=== PATIENT | male | born 1950 | race Two or more races ===

== ENCOUNTER 2021-12-31 09:38 | Inpatient (IN) | payer SELFPAY ==
[~2021-12-31] VITALS: Ht 167.6 cm; Wt 57.6 kg
--- NOTE | 2021-12-31 09:52 | NUR ---
NELY C/O VOMITING & DIZZINESS SINCE MN AFTER EATING. -DIARRHEA. PT ALSO C/O LT LOWER ABD PAIN. PT AAOX4, VSS. RR EVEN & UNLABORED. DENIES CP, SOB AT THIS TIME. PLACED ON EDGE INKER, SR. WILL CONT TO MONITOR. FAMILY AT ASSISTING WITH TRANSLATION.
[2021-12-31] MEDS ORDERED: MULT-447 PO (09:53)
--- NOTE | 2021-12-31 10:00 | NUR ---
CALLED CODE STROKE
--- NOTE | 2021-12-31 10:01 | NUR ---
COVID SWAB DONE AND SENT TO LAB
--- NOTE | 2021-12-31 10:05 | NUR ---
TELE NEUROLOGIST IS DR. KYLE BENOIT
[2021-12-31 10:12] LABS: BASOPHILS % (AUTO) 0.5 % (0.0-2.0); EOSINOPHILS % (AUTO) 0.2 % (0.0-6.0); HEMATOCRIT 39 % (39-51); HEMOGLOBIN 13.5 g/dL (13.5-17.5); LYMPHOCYTES # (AUTO) 0.8 K/uL (0.8-4.8); LYMPHOCYTES % (AUTO) 10.2 % (20.0-44.0); MEAN CORPUSCULAR HGB CONC 35 g/dl (31.0-36.0); MEAN CORPUSCULAR VOLUME 92 fL (80-96); MONOCYTES # (AUTO) 0.4 K/uL (0.1-1.30); MONOCYTES % (AUTO) 5.4 % (2.0-12.0); NEUTROPHILS # (AUTO) 6.8 K/uL (1.8-8.9); NEUTROPHILS % (AUTO) 83.7 % (43.0-81.0); PLATELET COUNT (AUTO) 271 K/uL (150-450); RED BLOOD CELL COUNT(AUTO) 4.24 MIL/uL (4.5-6.0); WHITE BLOOD COUNT (AUTO) 8.1 K/uL (4.3-11.0)
[2021-12-31] MEDS ORDERED: ONDANSETRON HCL/PF 4 MG/2 ML VIAL ONE (10:24)
[2021-12-31] MEDS ORDERED: MECLIZINE HCL 25 MG TABLET ONE (10:24)
[2021-12-31 10:27] LABS: ALANINE AMINOTRANSFERASE 19 U/L (12-78); ALBUMIN 3.4 g/dL (3.4-5.0); ALKALINE PHOSPHATASE 66 U/L (46-116); ASPARTATE AMINOTRANSFERASE 18 U/L (15-37); BILIRUBIN,DIRECT 0.1 mg/dL (0.0-0.2); BILIRUBIN,TOTAL 0.5 mg/dL (0.2-1.0); CALCIUM, SERUM 8.6 mg/dL (8.5-10.1); CARBON DIOXIDE 24 mmol/L (21-32); CHLORIDE 105 mmol/L (98-107); CREATININE 1.4 mg/dL (0.6-1.3); GLUCOSE 167 mg/dL (74-106); POTASSIUM 3.7 mmol/L (3.5-5.1); SODIUM SERUM 140 mmol/L (136-145); TOTAL PROTEIN, SERUM 6.7 g/dL (6.4-8.2); UREA NITROGEN, BLOOD 15 mg/dL (7-18)
[2021-12-31] MEDS ORDERED: ONDANSETRON HCL/PF - ER 4 MG/2 ML VIAL IV ONE (10:30)
[2021-12-31] MEDS ORDERED: MECLIZINE HCL 12.5 MG TABLET PO ONE (10:30)
--- NOTE | 2021-12-31 10:40 | NUR ---
PT AAOX4, VSS. STILL C/O DIZZINESS. SPEAKING FLUENTLY, TONGUE MIDLINE, NO FACIAL DROOP, NO ARM/LEG DRIFTING. DENIES CP, SOB, N/V AT THIS TIME.
--- NOTE | 2021-12-31 10:54 | NUR ---
MOVE SHEET SUBMITTED.
[2021-12-31] MEDS ORDERED: IOHEXOL-350 100 ML VIAL IV ONE (10:57)
[2021-12-31] MEDS ORDERED: IV NS 0.9% 250 ML IV ONE (10:57)
--- NOTE | 2021-12-31 10:58 | NUR ---
TAKEN TO CT VIA ANDREW
--- NOTE | 2021-12-31 11:10 | NUR ---
BACK FROM CT
--- NOTE | 2021-12-31 12:02 | NUR ---
PT ASLEEP, EASILY AWAKEN BY VERBAL STIMULI. PT STS THAT HE FEELS BETTER. DENIES CP, SOB, N/V, ABD PAIN AT THIS TIME. WILL CONT TO MONITOR.
--- NOTE | 2021-12-31 12:10 | NUR ---
URINE COLLECTED AND SENT TO LAB
--- NOTE | 2021-12-31 12:16 | NUR ---
[facility] CALLED COMMERCIAL SEWING INSTRUCTOR PAGED.
--- NOTE | 2021-12-31 13:43 | NUR ---
GOT BED 324-1
[2021-12-31] MEDS ORDERED: ASPIRIN 81 MG TAB.CHEW ONE (13:51)
[2021-12-31] MEDS ORDERED: ASPIRIN 81 MG TAB.CHEW PO ONE (14:00)
--- NOTE | 2021-12-31 14:06 | NUR ---
REPORT GIVEN TO LUIS BRICEÑO FOR TRISTA.
--- NOTE | 2021-12-31 14:12 | NUR ---
FIRE PROTECTION EQUIPMENT TECHNICIAN RECEIVING NOTES PATIENT TRANSPORTED TO UNIT VIA GURNEY AND TRANSFERRED TO BED. COMPLETE HEAD TO TOE ASSESSMENT PERFORMED OF ALL BODY SYSTEMS WITH EMPHASIS ON GASTROINTESTINAL AND NEUROLOGICAL SYSTEMS. VITAL SIGNS TAKEN UPON ARRIVAL: BP 126/68, HR 72, RR 18, T 97.8, O2 98 % ON ROOM AIR. NO S/S OF RESPIRATORY DISTRESS, NO COMPLAINTS OF PAIN OR DISCOMFORT AT THIS TIME. TELE MONITOR IN PLACE READING NSR. SAFETY MEASURES IN PLACE: BED IN LOWEST LOCKED POSITION, SIDE RAILS UP X 2, CALL LIGHT WITHIN REACH. WILL CONTINUE TO MONITOR. Addendum: 12/31/21 at 1941 by NAVARRO SILVA RN LAC 18G SL CLEAN, INTACT, AND FLUSHING WELL
[2021-12-31] MEDS ORDERED: MAGNESIUM HYDROXIDE 30 ML UDC PO PRN (14:30)
[2021-12-31] MEDS ORDERED: MAG HYDROX/AL HYDROX/SIMETH 30 ML UDC PO PRN (14:30)
[2021-12-31] MEDS ORDERED: ONDANSETRON HCL/PF 4 MG/2 ML VIAL IVP PRN (14:30)
[2021-12-31] MEDS: ENOXAPARIN SODIUM 40 MG/0.4 ML DISP.SYRIN SQ SCH (14:59)
[2021-12-31 15:11] LABS: BASOPHILS # (AUTO) 0.1 K/uL (0.0-0.2); BASOPHILS % (AUTO) 0.8 % (0.0-2.0); EOSINOPHILS % (AUTO) 0.1 % (0.0-6.0); HEMATOCRIT 37 % (39-51); HEMOGLOBIN 12.8 g/dL (13.5-17.5); LYMPHOCYTES % (AUTO) 13.6 % (20.0-44.0); MEAN CORPUSCULAR HGB CONC 35 g/dl (31.0-36.0); MEAN CORPUSCULAR VOLUME 92 fL (80-96); MONOCYTES # (AUTO) 0.2 K/uL (0.1-1.30); MONOCYTES % (AUTO) 2.9 % (2.0-12.0); NEUTROPHILS % (AUTO) 82.6 % (43.0-81.0); PLATELET COUNT (AUTO) 293 K/uL (150-450); RED BLOOD CELL COUNT(AUTO) 4.04 MIL/uL (4.5-6.0); WHITE BLOOD COUNT (AUTO) 7.2 K/uL (4.3-11.0)
[2021-12-31 15:46] LABS: ALBUMIN 3.3 g/dL (3.4-5.0); BILIRUBIN,TOTAL 0.6 mg/dL (0.2-1.0); CALCIUM, SERUM 8.5 mg/dL (8.5-10.1); CREATININE 1.2 mg/dL (0.6-1.3); POTASSIUM 3.5 mmol/L (3.5-5.1); TOTAL PROTEIN, SERUM 6.4 g/dL (6.4-8.2)
[2021-12-31 16:53] LABS: LDL 147 mg/dL (0-99)
[2021-12-31 16:54] LABS: CHOLESTEROL 218 mg/dL (<200); HDL CHOLESTEROL 50 mg/dL (40-60); THYROID STIMULATING HORMONE 0.758 uIU/mL (0.358-3.74); TRIGLYCERIDES 105 mg/dL (30-150)
[2021-12-31] MEDS: BLOOD SUGAR DIAGNOSTIC 1 EACH STRIP IN SCH ×3 (17:30→22:00)
--- NOTE | 2021-12-31 19:00 | NUR ---
COUNTER MANAGER CLOSING NOTES PATIENT LAYING IN BED, A/O X 4, ABLE TO MAKE NEEDS KNOWN. TOLERATING WELL ON ROOM AIR WITH NO SOB OR S/S RESPIRATORY DISTRESS. NO COMPLAINTS OF PAIN OR DISCOMFORT AT THIS TIME. TELE MONITOR IN PLACE READING NSR 62. SAFETY MEASURES IN PLACE: BED IN LOWEST LOCKED POSITION, SIDE RAILS UP X 2, CALL LIGHT WITHIN REACH. ALL NEEDS MET. WILL ENDORSE TO REGIONAL PRODUCTION MANAGER FOR TRISTA. Addendum: 12/31/21 at 1941 by NAVARRO SILVA RN LAC 18G SL CLEAN, INTACT, AND FLUSHING WELL
[2021-12-31 20:00] VITALS: BP 127/77
--- NOTE | 2021-12-31 20:38 | NUR ---
HAMMERSMITH HELPER OPENING NOTES: RECEIVED PATIENT AWAKE IN BED, BED IN LOW POSITION CALL LIGHTS WITHIN REACH, NO COMPLAIN OF PAIN AND DISCOMFORT AT THIS TIME, PATIENT WAS A/OX4 LAO SPEAKING, WITH EPISODE OF DIZZINESS, REMIND PATIENT TO USE CALL LIGHTS WHEN NEEDED ASSISTANCE, WITH IV LINE AT LAC#18 SL, ON TELE MONITORING SR-70, PATIENT KEPT CLEAN AND DRY ALL NEEDS MET WILL CONTINUE TO MONITOR.
--- NOTE | 2021-12-31 22:15 | NUR ---
RN NOTES; BS-130- NO INSULIN GIVEN
[2022-01-01] VITALS: BP 125/77
--- NOTE | 2022-01-01 00:13 | NUR ---
RN NOTES: BS-107 NO INSULIN GIVEN
[2022-01-01 04:00] VITALS: BP 122/64
[2022-01-01] MEDS: BLOOD SUGAR DIAGNOSTIC 1 EACH STRIP IN SCH ×9 (06:00→23:37)
--- NOTE | 2022-01-01 06:39 | NUR ---
RN NOTES: BS-103- NO INSULIN GIVEN
[2022-01-01 06:42] LABS: BASOPHILS # (AUTO) 0.1 K/uL (0.0-0.2); BASOPHILS % (AUTO) 0.9 % (0.0-2.0); EOSINOPHILS % (AUTO) 1.6 % (0.0-6.0); HEMATOCRIT 38 % (39-51); HEMOGLOBIN 13.3 g/dL (13.5-17.5); LYMPHOCYTES # (AUTO) 1.6 K/uL (0.8-4.8); LYMPHOCYTES % (AUTO) 26.8 % (20.0-44.0); MEAN CORPUSCULAR HGB CONC 35 g/dl (31.0-36.0); MEAN CORPUSCULAR VOLUME 92 fL (80-96); MONOCYTES # (AUTO) 0.4 K/uL (0.1-1.30); MONOCYTES % (AUTO) 6.3 % (2.0-12.0); NEUTROPHILS # (AUTO) 3.9 K/uL (1.8-8.9); NEUTROPHILS % (AUTO) 64.4 % (43.0-81.0); PLATELET COUNT (AUTO) 258 K/uL (150-450); RED BLOOD CELL COUNT(AUTO) 4.14 MIL/uL (4.5-6.0); WHITE BLOOD COUNT (AUTO) 6.1 K/uL (4.3-11.0)
[2022-01-01 07:09] LABS: CALCIUM, SERUM 8.8 mg/dL (8.5-10.1); CREATININE 1.3 mg/dL (0.6-1.3); POTASSIUM 3.6 mmol/L (3.5-5.1); THYROID STIMULATING HORMONE 0.833 uIU/mL (0.358-3.74)
--- NOTE | 2022-01-01 07:30 | NUR ---
PT RECEIVED RESTING COMFORTABLY IN BED. NO S/S OR C/O PAIN OR DISTRESS NOTED. SIDE RAILS UP X2. CALL LIGHT LEFT WITHIN REACH. WILL CONTINUE PLAN OF CARE.
--- NOTE | 2022-01-01 07:30 | NUR ---
RN CLOSING NOTES: PATIENT SLEEP OIN BED COMFORTABLY, AROUSABLE TO TACTILE STIMULI, BED IN LOW POSITION, CALL LIGHTS WITHIN REACH, NO COMPLAIN OF PAIN AND DISCOMFORT AT THIS TIME, WITH IV LINE AT LEFT WRIST #22 SL AND RCW HD BONNY CATH NO BLEEDING WAS OBSERVED, ON TELE MONITORING SR-70 WITH PAC, KEPT CLEAN AND DRY ALL NEEDS MET ENDORSE TO INCOMING SHIT.
[2022-01-01 08:00] VITALS: BP 114/68
[2022-01-01] MEDS: MULTIVITAMINS,THERAGRAN 1 UDTAB TABLET PO SCH (09:09)
[2022-01-01] MEDS: PANTOPRAZOLE 40 MG TABLET.DR PO SCH (09:09)
[2022-01-01 12:00] VITALS: BP 147/74
[2022-01-01] MEDS ORDERED: SIMV10TA2 PO (13:20)
[2022-01-01] MEDS ORDERED: ASPI-1420 PO (13:20)
[2022-01-01] MEDS: ENOXAPARIN SODIUM 40 MG/0.4 ML DISP.SYRIN SQ SCH (15:53)
[2022-01-01 16:00] VITALS: BP 117/56
--- NOTE | 2022-01-01 18:57 | NUR ---
CHANGE OF SHIFT REPORT PT RESTING COMFORTABLY IN BED. NO S/S OR C/O PAIN OR DISTRESS NOTED. SIDE RAILS UP X2, CALL LIGHT LEFT WITHIN REACH. PT KEPT CLEAN, DRY, AND COMFORTABLE. NO SIGNIFICANT CHANGES SINCE PREVIOUS SHIFT. WILL GIVE REPORT TO SIMA SMITH.
[2022-01-01 20:00] VITALS: BP 128/68
[2022-01-01] MEDS ORDERED: POLYVINYL ALCOHOL 15 ML BOTTLE EACHEYE PRN (20:30)
--- NOTE | 2022-01-01 20:35 | NUR ---
RN OPENING NOTES RECEIVED PT IN BED, AWAKE, SITTING UPRIGHT WITH FAMILY AT BEDSIDE. AOx4, MACANESE SPEAKING. ABLE TO MAKE NEEDS KNOWN. ON RA AND TOLERATING WELL. NO SOB NOTED. NO S/SX OF RESPIRATORY DISTRESS NOTED. TELE MONITOR DETECTS SINUS RHYTHM WITH PAC AND RATE OF 70. IV ACCESS IN LAC #18 G. IV IS INTACT, PATENT, AND FLUSHING WELL. SAFETY PRECAUTIONS IN PLACE: BED IN LOWEST, LOCKED POSITION, SIDERAILS UPx2, AND BRAKES ON. TABLE AND CALL LIGHT WITHIN REACH. WILL CONTINUE TO MONITOR.
--- NOTE | 2022-01-01 23:37 | NUR ---
RN NOTE NON-ADMIN BLOOD SUGAR @ 0000 BECAUSE PATIENT IS NOT NPO
[2022-01-02] MEDS: BLOOD SUGAR DIAGNOSTIC 1 EACH STRIP IN SCH ×8 (06:00→23:33)
--- NOTE | 2022-01-02 06:15 | NUR ---
RN NOTE NON-ADMIN BLOOD SUGAR @ 0600 BECAUSE PATIENT IS NOT NPO
[2022-01-02] MEDS: ACETAMINOPHEN 325 MG TABLET PO PRN ×2 (06:39→12:42)
[2022-01-02] MEDS: PANTOPRAZOLE 40 MG TABLET.DR PO SCH (07:03)
--- NOTE | 2022-01-02 07:20 | NUR ---
ORTHOPAEDIC TECHNOLOGIST OPENING NOTE RECEIVED PT IN BED, AWAKE, ALERT AND ORIENTED x4, ALGERIAN SPEAKING. ABLE TO MAKE NEEDS KNOWN. ON ROOM AIR, WITH EQUAL AND UNLABORED BREATHING, TOLERATING WELL, WITH NO SOB NOTED. PATIENT ON TELE MONITOR READING SINUS RHYTHM. WITH IV ACCESS IN LAC G18 ON SALINE LOCK, PATENT AND INTACT. SAFETY PRECAUTIONS IN PLACE: BED IN LOWEST, LOCKED POSITION, SIDERAILS UPx2, AND BRAKES ON. TABLE AND CALL LIGHT WITHIN REACH. WILL CONTINUE TO MONITOR.
--- NOTE | 2022-01-02 07:23 | NUR ---
RN CLOSING NOTES PT IN BED, AWAKE, LAYING IN BED. AOx4, [place] CITIZEN SPEAKING. ABLE TO MAKE NEEDS KNOWN. ON RA AND TOLERATING WELL. NO SOB NOTED. NO S/SX OF RESPIRATORY DISTRESS NOTED. TELE MONITOR DETECTS SINUS RHYTHM WITH PAC AND RATE OF 70. IV ACCESS IN LAC #18 G. IV IS INTACT, PATENT, AND FLUSHING WELL. ALL ORDERS CARRIED OUT. ALL NEEDS MET. PT KEPT CLEAN AND DRY. SAFETY PRECAUTIONS IN PLACE: BED IN LOWEST, LOCKED POSITION, SIDERAILS UPx2, AND BRAKES ON. TABLE AND CALL LIGHT WITHIN REACH. WILL ENDORSE TO ONCOMING SHIFT FOR TRISTA.
[2022-01-02 08:00] VITALS: BP 104/62
--- NOTE | 2022-01-02 08:50 | NUR ---
SUPERVISOR SHUTTLE VENEERING NOTE PATIENT BROUGHT DOWN FOR MRI ORDERED. CONSENTS SIGNED AND ATTACHED TO CHART. IN STABLE CONDITION.
[2022-01-02] MEDS: MULTIVITAMINS,THERAGRAN 1 UDTAB TABLET PO SCH (08:51)
--- NOTE | 2022-01-02 09:19 | NUR ---
SS consult for stroke abuse was requested over the weekend. SW will follow up.
--- NOTE | 2022-01-02 09:45 | NUR ---
PERFORMING ARTS TECHNICIANS NOTE PATIENT BROUGHT BACK FROM MRI AND TRANSFERRED TO BED. PATIENT IN STABLE CONDITION. WILL CONTINUE TO MONITOR PATIENT.
[2022-01-02] MEDS ORDERED: GADOTERATE MEGLUMINE 10 MMOL/20 ML VIAL IV ONE (09:58)
--- NOTE | 2022-01-02 10:30 | NUR ---
SAP SENIOR DEVELOPER NOTE PATIENT SEEN BY Timmy GUERRA
[2022-01-02 12:00] VITALS: BP 114/73
[2022-01-02] MEDS: ENOXAPARIN SODIUM 40 MG/0.4 ML DISP.SYRIN SQ SCH (14:58)
[2022-01-02 15:54] LABS: BASOPHILS % (AUTO) 0.3 % (0.0-2.0); HEMATOCRIT 42 % (39-51); HEMOGLOBIN 14.5 g/dL (13.5-17.5); LYMPHOCYTES # (AUTO) 0.8 K/uL (0.8-4.8); LYMPHOCYTES % (AUTO) 7.8 % (20.0-44.0); MEAN CORPUSCULAR HGB CONC 35 g/dl (31.0-36.0); MEAN CORPUSCULAR VOLUME 90 fL (80-96); MONOCYTES % (AUTO) 9.3 % (2.0-12.0); NEUTROPHILS # (AUTO) 8.7 K/uL (1.8-8.9); NEUTROPHILS % (AUTO) 82.6 % (43.0-81.0); PLATELET COUNT (AUTO) 250 K/uL (150-450); RED BLOOD CELL COUNT(AUTO) 4.61 MIL/uL (4.5-6.0); WHITE BLOOD COUNT (AUTO) 10.5 K/uL (4.3-11.0)
[2022-01-02 16:00] VITALS: BP 138/78
[2022-01-02 16:03] LABS: CALCIUM, SERUM 8.2 mg/dL (8.5-10.1); CARBON DIOXIDE 27 mmol/L (21-32); CHLORIDE 98 mmol/L (98-107); CREATININE 1.5 mg/dL (0.6-1.3); GLUCOSE 126 mg/dL (74-106); POTASSIUM 3.7 mmol/L (3.5-5.1); SODIUM SERUM 132 mmol/L (136-145); UREA NITROGEN, BLOOD 18 mg/dL (7-18)
--- NOTE | 2022-01-02 18:48 | NUR ---
BUTTON MAKER CLOSING NOTE PT IN BED SLEEPING BUT EASILY WOKEN UP, ALERT AND ORIENTED x4, GREENLANDIC SPEAKING. ABLE TO MAKE NEEDS KNOWN. ON ROOM AIR, WITH EQUAL AND UNLABORED BREATHING, TOLERATING WELL, WITH NO SOB NOTED. PATIENT ON TELE MONITOR READING SINUS RHYTHM. WITH IV ACCESS IN LAC G18 ON SALINE LOCK, PATENT AND INTACT. SAFETY PRECAUTIONS IN PLACE: BED IN LOWEST, LOCKED POSITION, SIDERAILS UPx2, AND BRAKES ON TABLE AND CALL LIGHT WITHIN REACH. PT IS AFEBRILE, WILL ENDORSE TO NEXT SHIFT.
[2022-01-02 20:00] VITALS: BP 141/74
[2022-01-03] MEDS: ACETAMINOPHEN 325 MG TABLET PO PRN ×2 (04:53→16:07)
--- NOTE | 2022-01-03 05:18 | NUR ---
closing Notes: Alert and orientated X4 Chilean speaking with some understanding of Welsh Afebrile thru the 12 hours highest 100.8 at 2000 and 0400 98.8 orally Tylenol given for neck pain noted he like ice bags to help relieve the pain NIHSS score 0 no seen deficits skin is clean and clear intact call light within reach bed alarm on near the nursing station
[2022-01-03] MEDS: BLOOD SUGAR DIAGNOSTIC 1 EACH STRIP IN SCH ×5 (06:19→21:04)
--- NOTE | 2022-01-03 07:30 | NUR ---
ESCALATOR MECHANIC OPENING NOTES: RECEIVED PT IN BED ASLEEP ABLE TO AROUSE W/ STIMULI. A/O X 3 ABLE TO VERBALIZED NEEDS. NO SOB OR CARDIAC DISTRESS NOTED, NO COMPLAIN OF ANY PAIN AT THIS TIME. ON ROOM AIR AND TOLERATING WELL. ON HEALTH POLICY ANALYST WITH CURRENT READING OF SINUS RHYTHM 77BPM. WITH IV ACCESS ON LAC G#18 PATENT AND INTACT INFUSING NS 75ML/HR. SAFETY MEASURES: BED LOCKED AND IN LOWEST POSITION, CALL LIGHT IN EASY REACH FOR HELP.
[2022-01-03 07:42] LABS: BASOPHILS % (AUTO) 0.1 % (0.0-2.0); HEMATOCRIT 39 % (39-51); HEMOGLOBIN 13.5 g/dL (13.5-17.5); LYMPHOCYTES # (AUTO) 1.2 K/uL (0.8-4.8); LYMPHOCYTES % (AUTO) 8.9 % (20.0-44.0); MEAN CORPUSCULAR HGB CONC 35 g/dl (31.0-36.0); MEAN CORPUSCULAR VOLUME 89 fL (80-96); MONOCYTES # (AUTO) 1.4 K/uL (0.1-1.30); MONOCYTES % (AUTO) 10.6 % (2.0-12.0); NEUTROPHILS % (AUTO) 80.4 % (43.0-81.0); PLATELET COUNT (AUTO) 238 K/uL (150-450); RED BLOOD CELL COUNT(AUTO) 4.35 MIL/uL (4.5-6.0); WHITE BLOOD COUNT (AUTO) 13.6 K/uL (4.3-11.0)
[2022-01-03] MEDS: PANTOPRAZOLE 40 MG TABLET.DR PO SCH (07:48)
[2022-01-03 07:56] LABS: CALCIUM, SERUM 8.4 mg/dL (8.5-10.1); CARBON DIOXIDE 24 mmol/L (21-32); CHLORIDE 99 mmol/L (98-107); CREATININE 1.2 mg/dL (0.6-1.3); GLUCOSE 118 mg/dL (74-106); MAGNESIUM 1.7 mg/dL (1.8-2.4); PHOSPHORUS 3.1 mg/dL (2.5-4.9); SODIUM SERUM 134 mmol/L (136-145); UREA NITROGEN, BLOOD 15 mg/dL (7-18)
[2022-01-03 08:00] VITALS: BP 112/62
[2022-01-03] MEDS: MULTIVITAMINS,THERAGRAN 1 UDTAB TABLET PO SCH (09:17)
[2022-01-03] MEDS: POTASSIUM CHLORIDE 20 MEQ POWDER PACKET PO SCH ×3 (10:02→12:26)
[2022-01-03] MEDS ORDERED: MAGNESIUM OXIDE 400 MG TABLET PO ONE (11:30)
--- NOTE | 2022-01-03 11:51 | NUR ---
RN NOTES ACCU-CHECK NOTED AT 159MG/DL, DR GUERRA MADE AWARE. NO NEW ORDER MADE.
[2022-01-03 12:00] VITALS: BP 129/71
[2022-01-03] MEDS: IV NS 0.9% 1,000 ML IV PRN (12:49)
--- NOTE | 2022-01-03 14:21 | NUR ---
SS Note: Pt. Is a 71-year-old male who demonstrates adequate insight to the reason for hospitalization. Per EMR, pt. presents to the ER for vomiting and dizziness. Pt. was oriented x3, alert, and cooperative. During interview, pt. was capable of following directions and appeared unkempt. Pt.s speech was at a normal rate and pt.s mood was elevated. Pt. reported no hx of mental health, substance abuse, suicidal ideation, or homicidal ideation. Pt. denies auditory hallucinations, visual hallucinations, paranoia, or delusions. SW explored pt.s living situation. Per pt., he lives with his son [[address] [place] [address]]. Pt. is ambulatory but uses a walker as needed. Per pt., he does not have hx of a stroke. Per EMR, pt. has vertigo. Plan: SW provided available resources and pt. accepted. Per pt., upon discharge he will go back home with his son Gurjit [[address] [place] [address]]. Resources Provided: ABUSE PREVENTION: Elder Abuse Hotline (25/02) Adult Protective Services Hotline Long-Term Care [facility] Region Area On Aging (Hotline) ADULT DAY HEALTH CARE CARE CENTERS: Private pay or Medi-uc medical center funded adult day care [place] Adult Day Health Care [facility] [place] , [facility] Integration Services , [facility] Adult Care Center , [facility] Adult Day Health Care , [facility] Adult Day Health Care , [facility] Adult Daycare Center , [place] [facility] Emergency Department Center , [facility] Adult Center , [place] ALZHEIMERS DISEASE/DEMENTIA: Alzheimers Association [facility] www.alz.org/[facility] Department of Aging www.lacity.org Family Caregiver Ivins www.caregiver.org [place] Caregiver Resources Center/Family Support www.[facility].org CANCER RESOURCES: [place]ese Cancer Society www.cancer.org Cancer Support Community www.CancerSupportVvsb.org: Cancer Care www.cancercare.org [facility] Cancer Support [place] www.[facility].org [facility] HEALTH ASSOCIATIONS: AARP www.aarp.org ALS Association (ask for Brigette) www.als.org Taiwanese Diabetes Association www.diabetes.org Taiwanese Heart Association www.heart.org Taiwanese Lung Association www.lungusa.org Taiwanese Parkinson Disease Association www.apdaparkinson.org Taiwanese [place] , www.redcross.org Arthritis Foundation www.arthritis.org Crohns & Colitis Foundation of [place]ese www.ccfa.org/chapters/josias National Multiple Sclerosis Society www.nationalmssociety.org Myasthenia Gravis Foundation www.myasthenia-ca.org National Stroke Association www.stroke.org CONSERVATORSHIP & GUARDIANSHIP: AARP Angela Mckeon Legal Services Center for Health Care Rights Eldercare Information and Referral General Helper Foundation [facility]: [facility] Referral Service [facility] Legal Services Office of the Public Guardian Goodman EYESIGHT DISORDER RESOURCES: [place]ese Macular Degeneration Foundation [facility] www.[facility].org GRIEF AND BEREAVEMENT RESOURCES: The [place] , [facility] THE HOPE Connection , [facility] Bereavement Center , [place] HEARING DISORDER RESOURCES: [place] Telephone Access Program Deaf and Disabled Telecommunications Program www.ddtp.cpu.ca.gov HearRx Hearing Centers ([place]es) Better Hearing Systems , [place] GLAD ([facility] Agency on Deafness) V/ TTY; Diesel Engine Assembler , [facility] Hearing [facility] -low income hearing aid assistance www.[facility], smyrnahearingfoundation.org [place] Hearing Care , Luis Enrique HELP AT HOME CAREGIVER SUPPORT: In Home Support Services (Must have Medi-Lauri to be eligible) *Ask for a list of agencies that provide services to assist with care in the home. Local Senior Centers also have listings of care providers. HOME SAFETY MODIFICATIONS AND EQUIPMENT: Senior centers have additional referrals. [place] Housing and Community Investment Dept. Handyworker Program (low income) or Visit http://hcidla.[facility] army medical centerity.org/bfl-xkwdpu-mn for more information National Seating and Mobility and/or ; Forever Active www.foreverSmartisanmed.com Stay Home Safe www.Stayhomesafe.com LIFE ALERT RESPONSE SYSTEM: Allmyapps Lifeline Services 862-814-3158 www. [place] Life Alert 691-820-4760 www.lifealert.com Life Station 872-515-3790 www.GreenPoint Partnersation.com Safe Return 311-132-8769 www.alz.or/safereturn Cell Phones for Seniors www.Electrolytic Ozone MEALS AND FOOD PROGRAMS: [place] Meals on Wheels [phone] [place] Meals on Wheels [phone] [facility] [phone] [place] to the Homebound [phone] [place] to the Homebound [phone] [facility] to the Homebound [phone] [facility] to the Homebound [phone] [facility] [phone] [facility] [phone] ONE Generation [phone] [facility] [phone] [facility] [phone] Meals on Wheels [phone] For all ages: $6.85/ meal w side. Delivered M-F from 10 am-1pm. Application and payment is done over the phone. Frozen meals available for weekends. Emergency Food [facility] [phone] [facility] Supervisor Of Communications [phone] [facility] [phone] [facility]- Brown bag lunches [phone] [facility] [phone] MEAL/GROCERY DELIVERY PROGRAMS: [facility] Gourmet Meals [phone]- [facility] [phone]- [facility] Magic Kitchen [phone] Moms Meals [phone] (ask Dao for Discount Select grocery stores may provide delivery. MEDICAL INSURANCE SUPPORT SERVICES: Center for Health Care Rights [phone] Health Insurance Counseling/Advocacy Programs (HICAP)-Must have Medicare. Offers counseling for Medi-Lauri eligibility [phone] Department of Public Supervisor Of Communications 732-981-7413 www.[facility].ca.gov Medicare 260-246-3183 www.socialsecurity.org Social Security [phone] SENIOR ACTIVITY PROGRAMS: *Contact a local senior center, adult school, recreation facility or community college for education, fitness, recreation, and social programs. Aquatic Therapy and Adapted Exercise programs through [facility] [phone] [facility] 636-940-2172 www.[facility]/encore H2U- Senior Friends [phone] [place] Senior Programs [phone] www.oasisnet.org Suddenly 65 www.lorbrxgz26.Anokion SA SENIOR CENTERS: [facility] [phone] [facility] [phone] [facility] [phone] [facility] [phone] [facility] [phone] [facility] [phone] [facility] [phone] [facility] [phone] [facility] [phone] [facility] [phone] [facility] [phone] [facility] [phone] [facility] [phone] TRANSPORTATION: Local [facility] may have applications for transportation programs and additional resources. ACCESS Services [phone] Transportation for seniors and disabled persons 7 days a week requiring 254 hr. advance reservation. Must apply and register for program to be eligible. [employer] 133-222-1862 or [phone] Transportation for seniors and persons with ADA card/metro disabled card in the [facility]. M-F only. Must register for services. ONE GENERATION 925-051-7175 Serves 65 years + in conjunction with city PatientPay Inc.e program. Must be registered with both programs. A to B Transport [phone] Provides wheelchair/gurney van service. TRANSPORTATION CONTINUED: Adult Medical Transport [phone] Accepts Medi-lauri with prior authorization. Care Van [phone] Provides wheelchair Transport. [facility] Wide Transportation [phone] Provides gurney service [facility] [phone] Gurney Transport. [facility] Transportation [phone] wheelchair & gurney transport D Transportation [phone] wheelchair & gurney transport [place] Non-Emergency Transport [phone] wheelchair & gurney transport [facility] Living Center [phone] (Short Term Transportation primarily for adults with disabilities on social security income. Nominal fee may apply and a reservation is required.) [facility] Cab [phone] or [phone] [facility] [phone] [place] [address] Referral Services -[phone] For additional programs & services VETERANS RESOURCES: Submissions for Aid and Attendance should be done directly to Federal VA office located at: [address] [address] X110 National Caregiver Support Line [phone] [facility] Veterans Services Field Office [phone] [place] Department of Affairs [phone] Pension Information [phone]
--- NOTE | 2022-01-03 14:24 | NUR ---
RN NOTES: FOLLOWED UP SUPERINTENDENT DRILLING AND PRODUCTION OF URINE SPECIMEN, SPOKE TO BOONE (LAB)
[2022-01-03] MEDS: ENOXAPARIN SODIUM 40 MG/0.4 ML DISP.SYRIN SQ SCH (15:01)
[2022-01-03 15:54] LABS: BILIRUBIN,URINE NEGATIVE (NEGATIVE); COLOR,URINE YELLOW (YELLOW); LEUKOCYTE ESTERASE ,URINE NEGATIVE (NEGATIVE); NITRITE, URINE NEGATIVE (NEGATIVE); PH,URINE 6.5 (5.0-8.0); PROTEIN,URINE TRACE mg/dl (NEGATIVE); UGLUCOSE NEGATIVE (NEGATIVE); UROBILINOGEN,URINE 0.2 EU/dL (0.2)
[2022-01-03 16:00] VITALS: BP 121/67
--- NOTE | 2022-01-03 16:07 | NUR ---
RN NOTES: PT NOTED WITH ELEVATED TEMPERATURE 100.4F TYLENOL 650MG TAB GIVEN, AND COOLING MEASURES RENDERED.
[2022-01-03 16:39] LABS: BACTERIA,URINE 1+ /HPF (None Seen); RBC,URINE 51-80 /HPF (0-2); SQUAMOUS EPITHELIAL CELL,UR 0-2 /HPF (None Seen)
[2022-01-03] MEDS: CEFTRIAXONE 1 G in IV D5W 50 ML IV SCH (18:01)
--- NOTE | 2022-01-03 18:55 | NUR ---
CLINICAL LABORATORY DIRECTOR CLOSING NOTES: PT IN BED ASLEEP ABLE TO AROUSE W/ STIMULI. A/O X 3 ABLE TO VERBALIZED NEEDS. ICELANDIC SPEAKING.NO SOB OR CARDIAC DISTRESS NOTED, NO COMPLAIN OF ANY PAIN AT THIS TIME. ON ROOM AIR AND TOLERATING WELL. ON TAXONOMIST WITH CURRENT READING OF SINUS RHYTHM BPM. WITH IV ACCESS ON LAC G#18 PATENT AND INTACT INFUSING NS 75ML/HR. SAFETY MEASURES: BED LOCKED AND IN LOWEST POSITION, CALL LIGHT IN EASY REACH FOR HELP. ENDORSED TO WARBLE SAW OPERATOR NURSE FOR CONTINUITY OF CARE.
[2022-01-03 20:00] VITALS: BP 119/66
[2022-01-03] MEDS: IBUPROFEN 400 MG TABLET PO PRN (20:54)
[2022-01-04 01:31] VITALS: BP 116/67
[2022-01-04 04:00] VITALS: BP 113/64
--- NOTE | 2022-01-04 04:53 | NUR ---
Closing Notes: alert and orientated X4 speaks croatian but able to make his needs known uses the urinal need assist when needing a drink 2400 he was diaphoretic Blood sugar 121 temp 98.6 medicated with Motrin X1 for neck pain he is cooperative and friendly no edema
[2022-01-04] MEDS: BLOOD SUGAR DIAGNOSTIC 1 EACH STRIP IN SCH ×4 (06:10→21:20)
[2022-01-04 07:02] LABS: CALCIUM, SERUM 8.4 mg/dL (8.5-10.1); CARBON DIOXIDE 25 mmol/L (21-32); CHLORIDE 104 mmol/L (98-107); CREATININE 1.1 mg/dL (0.6-1.3); GLUCOSE 104 mg/dL (74-106); MAGNESIUM 1.9 mg/dL (1.8-2.4); POTASSIUM 3.8 mmol/L (3.5-5.1); SODIUM SERUM 137 mmol/L (136-145); UREA NITROGEN, BLOOD 17 mg/dL (7-18)
[2022-01-04] MEDS: PANTOPRAZOLE 40 MG TABLET.DR PO SCH (07:29)
--- NOTE | 2022-01-04 07:30 | NUR ---
TESTING COORDINATOR OPENING NOTES: RECEIVED PT IN BED ASLEEP ABLE TO AROUSE W/ STIMULI. ENGLISH SPEAKING PATIENT, A/O X 3 ABLE TO VERBALIZED NEEDS. NO SOB OR CARDIAC DISTRESS NOTED, NO COMPLAIN OF ANY PAIN AT THIS TIME. ON ROOM AIR AND TOLERATING WELL. ON MARKETING REP WITH CURRENT READING OF SINUS RHYTHM 67BPM. WITH IV ACCESS ON LAC G#18 PATENT AND INTACT INFUSING NS 75ML/HR. SAFETY MEASURES: BED LOCKED AND IN LOWEST POSITION, CALL LIGHT IN EASY REACH FOR HELP. WILL MONITOR AND REPORT FOR ANY SIGNIFICANT CHANGES. KEPT RESTED AND COMFORTABLE.
[2022-01-04 08:00] VITALS: BP 109/59
[2022-01-04] MEDS: MULTIVITAMINS,THERAGRAN 1 UDTAB TABLET PO SCH (08:52)
[2022-01-04] MEDS: IBUPROFEN 400 MG TABLET PO PRN (08:55)
[2022-01-04 11:15] LABS: BASOPHILS % (AUTO) 0.3 % (0.0-2.0); EOSINOPHILS % (AUTO) 0.3 % (0.0-6.0); HEMATOCRIT 39 % (39-51); HEMOGLOBIN 13.4 g/dL (13.5-17.5); LYMPHOCYTES # (AUTO) 1.4 K/uL (0.8-4.8); MEAN CORPUSCULAR HGB CONC 35 g/dl (31.0-36.0); MEAN CORPUSCULAR VOLUME 92 fL (80-96); MONOCYTES # (AUTO) 1.3 K/uL (0.1-1.30); MONOCYTES % (AUTO) 10.7 % (2.0-12.0); NEUTROPHILS % (AUTO) 76.7 % (43.0-81.0); PLATELET COUNT (AUTO) 242 K/uL (150-450); RED BLOOD CELL COUNT(AUTO) 4.21 MIL/uL (4.5-6.0); WHITE BLOOD COUNT (AUTO) 11.7 K/uL (4.3-11.0)
[2022-01-04] MEDS: ENOXAPARIN SODIUM 40 MG/0.4 ML DISP.SYRIN SQ SCH (14:46)
[2022-01-04] MEDS: ENSURE ENLIVE CHOC 237 ML CAN PO SCH (17:34)
[2022-01-04] MEDS: CEFTRIAXONE 1 G in IV D5W 50 ML IV SCH (18:00)
[2022-01-04] MEDS: IV NS 0.9% 1,000 ML IV PRN (18:12)
--- NOTE | 2022-01-04 18:37 | NUR ---
MANAGER HOSPITAL CLOSING NOTES: PT IN BED AWAKE, PERSIAN SPEAKING PATIENT, A/O X 3 ABLE TO VERBALIZED NEEDS. NO SOB OR CARDIAC DISTRESS NOTED. ON ROOM AIR AND TOLERATING WELL. DENIES ANY PAIN AT THIS TIME. ON STEFFEN HOUSE SUPERVISOR WITH CURRENT READING OF SINUS RHYTHM 70 BPM. WITH IV ACCESS ON LAC G#18 PATENT AND INTACT INFUSING NS 75ML/HR. SAFETY MEASURES: BED LOCKED AND IN LOWEST POSITION, CALL LIGHT IN EASY REACH FOR HELP. WILL MONITOR AND REPORT FOR ANY SIGNIFICANT CHANGES. KEPT RESTED AND COMFORTABLE. ENDORSED TO BUNCHER MACHINE NURSE FOR CONTINUITY OF CARE.
[2022-01-04 20:00] VITALS: BP 114/63
--- NOTE | 2022-01-04 21:21 | NUR ---
MS/TELE/RN ON INITIAL SHIFT ROUNDING, PATIENT WAS IN BED AWAKE, ALERT, ORIENTED, APPEARED COMFORTABLE, NO SIGNS OF DISTRESS NOTE, CALL LIGHT IN REACH, FALL PRECAUTIONS PER PROTOCOL IMPLEMENTED, WILL MONITOR.
[2022-01-05] VITALS: BP 109/52
[2022-01-05 04:00] VITALS: BP 128/73
[2022-01-05] MEDS: IV NS 0.9% 1,000 ML IV PRN (06:08)
--- NOTE | 2022-01-05 06:12 | NUR ---
MS/TELE/RN PATIENT IS STILL SLEEPING AT THIS TIME, APPEARS COMFORTABLE, NO SIGNS OF DISTRESS NOTED, CALL LIGHT IN REACH, ALL NEEDS ATTENDED AT THIS TIME, WILL CONTINUE TO MONITOR.
[2022-01-05] MEDS: BLOOD SUGAR DIAGNOSTIC 1 EACH STRIP IN SCH ×2 (06:43→12:14)
[2022-01-05] MEDS: ACETAMINOPHEN 325 MG TABLET PO PRN (08:10)
[2022-01-05] MEDS: PANTOPRAZOLE 40 MG TABLET.DR PO SCH (08:10)
[2022-01-05] MEDS: MULTIVITAMINS,THERAGRAN 1 UDTAB TABLET PO SCH (08:10)
[2022-01-05 08:55] VITALS: BP 131/76
[2022-01-05] MEDS: ENSURE ENLIVE CHOC 237 ML CAN PO SCH (08:56)
--- NOTE | 2022-01-05 10:20 | NUR ---
RN NOTES PATIENT SEEN BY DR. GUERRA AT BEDSIDE, MADE AWARE OF PLAN OF CARE. OK FOR DISCHARGE TODAY PER DNP.
[2022-01-05] MEDS ORDERED: LEVO500T90 PO (10:40)
[2022-01-05 11:19] LABS: BASOPHILS # (AUTO) 0.1 K/uL (0.0-0.2); BASOPHILS % (AUTO) 0.5 % (0.0-2.0); EOSINOPHILS % (AUTO) 0.2 % (0.0-6.0); HEMATOCRIT 38 % (39-51); HEMOGLOBIN 13.3 g/dL (13.5-17.5); LYMPHOCYTES # (AUTO) 1.9 K/uL (0.8-4.8); LYMPHOCYTES % (AUTO) 20.6 % (20.0-44.0); MEAN CORPUSCULAR HGB CONC 35 g/dl (31.0-36.0); MEAN CORPUSCULAR VOLUME 91 fL (80-96); MONOCYTES % (AUTO) 11.4 % (2.0-12.0); NEUTROPHILS # (AUTO) 6.2 K/uL (1.8-8.9); NEUTROPHILS % (AUTO) 67.3 % (43.0-81.0); PLATELET COUNT (AUTO) 287 K/uL (150-450); RED BLOOD CELL COUNT(AUTO) 4.16 MIL/uL (4.5-6.0); WHITE BLOOD COUNT (AUTO) 9.2 K/uL (4.3-11.0)
[2022-01-05 11:35] LABS: CALCIUM, SERUM 8.1 mg/dL (8.5-10.1); CREATININE 1.2 mg/dL (0.6-1.3); POTASSIUM 3.6 mmol/L (3.5-5.1)
[2022-01-05] MEDS: ENOXAPARIN SODIUM 40 MG/0.4 ML DISP.SYRIN SQ SCH (13:46)
--- NOTE | 2022-01-05 14:30 | NUR ---
RN NOTES FAMILY AT BEDSIDE; TAJIK-SPEAKING STAFF UTILIZED FOR TRANSLATION. PATIENT MADE AWARE OF PLAN OF CARE, AGREED W/ DISCHARGE ORDER AND PLAN. DISCHARGE INSTRUCTION AND EDUCATION PROVIDED TO PATIENT.
[2022-01-05] MEDS: IBUPROFEN 400 MG TABLET PO PRN (14:39)
--- NOTE | 2022-01-05 14:46 | NUR ---
RN NOTES NO SKIN ISSUE NOTED. PATIENT ABLE TO AMBULATE W/ FWW W/ STEADY GAIT. DISCHARGE FORM AND BELONGINGS LIST FORM SIGNED BY PATIENT AND ALL BELONGINGS ACCOUNTED FOR.
--- NOTE | 2022-01-05 15:40 | NUR ---
RN NOTES NAME ARMBAND AND IV LINES REMOVED. NO BLEEDING NOTED ON SITE. PATIENT ACCOMPANIED TO THE LOBBY VIA WHEELCHAIR AND PICKED UP BY SON VIA PRIVATE CAR. CHARGE NURSE AND MD AWARE OF DISCHARGE.
== END 2022-01-05 15:30 | disposition home or self-care (01) | DRG 149 ==
LOC: ER 09:52 → TELE 13:58
DX: H81.10 Benign paroxysmal vertigo, unspecified ear (principal); N17.0 Acute kidney failure with tubular necrosis; N39.0 Urinary tract infection, site not specified; N18.9 Chronic kidney disease, unspecified; Z20.822 Contact with and (suspected) exposure to COVID-19; D64.9 Anemia, unspecified; E87.6 Hypokalemia; B96.89 Other specified bacterial agents as the cause of diseases classified elsewhere; R50.9 Fever, unspecified
CPT/HCPCS: 36415; 70450-TC; 70496-TC; 70498-TC; 70553-TC; 71045-TC; 80048-TC; 80053-TC; 80061-TC; 80076-TC; 81001; 82962-TC; 83690-TC; 83735-TC; 83880; 84100-TC; 84443-TC; 84484-TC; 85025-TC; 85652-TC; 85730-TC; 87040-TC; 87081-TC; 87086-TC; 92526; 92611-TC; 93307-TC; 97116-TC; 97530-TC; 97535-TC; A9575; C9803; G0378; J0696; J1650; J2405; J7030; J7050; J7060; J8597; Q9967